=== PATIENT | female | born 1940 | race African-American/Black ===

== ENCOUNTER 2020-10-16 20:09 | Inpatient (IN) ==
[2020-10-16] MEDS ORDERED: ONDANSETRON 4 MG/2 ML VIAL IV STA (20:39)
[2020-10-16] MEDS ORDERED: ASPIRIN 325 MG TABLET PO STA (20:39)
[2020-10-16 21:19] LABS: Basophils % 0.2 % (0.0-0.8); Eosinophils # 0.1 10*3/uL (0.0-0.87); Eosinophils % 2.4 % (0.00-10.9); Hematocrit 40.4 VOL% (35.7-47.0); Hemoglobin 12.6 GM/DL (12.0-16.0); Immature Granulocytes % 0.2 %; Immature Granulocytes Absolute 0.01 #; Lymphocytes # 2.2 10*3/uL (1.4-4.0); Lymphocytes % 40.4 % (21.3-54.2); Mean Corpuscular HGB Conc 31.2 GM/DL (32-36); Mean Corpuscular Volume 88.2 FL (87-102); Monocytes % 11.9 % (1.7-12.7); Neutrophils % 44.9 % (38.7-73.9); Platelet Count 174 T/CUMM (130-400); Red Blood Count 4.58 MC/CUMM (3.8-5.5); White Blood Count 5.4 T/CUMM (4-12)
[2020-10-16 21:46] LABS: Alanine Aminotransferase 26 U/L (13-56); Albumin 3.5 G/DL (3.4-5.0); Alkaline Phosphatase 55 U/L (45-117); Aspartate Amino Transferase 20 U/L (0-37); Blood Urea Nitrogen 17 MG/DL (7-18); Calcium 9.6 MG/DL (8.5-10.1); Carbon Dioxide 30 MMOL/L (21-32); Estimated Glom Filtration Rate 68 ML/MIN; Glucose 90 MG/DL (74-106); Osmolality,Calculated 280.4 MOS/KG (273-304); Potassium 4.1 MMOL/L (3.5-5.1); Sodium 140 MMOL/L (136-145); Total Protein 7.4 G/DL (6.4-8.2)
[2020-10-16 22:05] LABS: INR 1.1; PT Patient Result 12.6 SECS (9.8-11.9); Partial Thromboplastin Time 29.7 SECS (23.9-33.8)
[2020-10-16 22:17] LABS: Bilirubin,Urine Negative (Negative); Blood, Urine Negative (Negative); Glucose,Urine (UA) Negative (Negative); Ketones,Urine Negative (Negative); Nitrite,Urine Negative (Negative); Protein,Urine Negative; RBC,Urine 1 /HPF (0-4); Squamous Epithelial Cell,Urine Occasional /HPF (0-10); Urine Appearance CLEAR (Clear); Urine Color Straw (Yellow); Urine Specific Gravity 1.005 (1.001-1.035); Urine Urobilinogen < 2.0 EU/DL (0.2-1.0)
[2020-10-16 22:52] LABS: Barbiturates Screen,Urine Negative (Negative); Benzodiazepines Screen,Urine Negative (Negative); Cannabinoid Screen,Urine Negative (Negative); Opiate Screen,Urine Negative (Negative); Phencyclidine Screen,Urine Negative (Negative)
[2020-10-17] MEDS ORDERED: ACETAMINOPHEN 325 MG TABLET PO PRN (01:19)
[2020-10-17] MEDS ORDERED: POLYETHYLENE GLYCOL POWDER 17 GM PACK PO PRN (01:19)
[2020-10-17] MEDS ORDERED: KETOROLAC 0.5% OPH SOLN 5 ML BOTTLE BOTH EYES PRN (01:19)
[2020-10-17] MEDS ORDERED: MORPHINE 4 MG/1 ML VIAL IV PRN (01:19)
[2020-10-17] MEDS ORDERED: ONDANSETRON 4 MG/2 ML VIAL IV PRN (01:19)
[2020-10-17] MEDS ORDERED: ONDANSETRON ODT 4 MG TABLET PO PRN (01:19)
[2020-10-17 04:50] LABS: Basophils % 0.4 % (0.0-0.8); Eosinophils # 0.2 10*3/uL (0.0-0.87); Eosinophils % 3.2 % (0.00-10.9); Hemoglobin 12.5 GM/DL (12.0-16.0); Lymphocytes # 2.4 10*3/uL (1.4-4.0); Lymphocytes % 50.4 % (21.3-54.2); Mean Corpuscular HGB Conc 32.1 GM/DL (32-36); Mean Corpuscular Volume 87.2 FL (87-102); Mean Platelet Volume 11.3 FL (9.6-12.0); Monocytes % 10.3 % (1.7-12.7); Neutrophils % 35.7 % (38.7-73.9); Platelet Count 170 T/CUMM (130-400); Red Blood Count 4.47 MC/CUMM (3.8-5.5); Red Cell Distribution Width 13.9 % (9.3-17.3); White Blood Count 4.7 T/CUMM (4-12)
[2020-10-17 05:03] LABS: Albumin 3.4 G/DL (3.4-5.0); Bilirubin,Total 0.4 MG/DL (0.2-1.0); Calcium 9.1 MG/DL (8.5-10.1); Osmolality,Calculated 276.5 MOS/KG (273-304); Potassium 4.1 MMOL/L (3.5-5.1); Risk Ratio 3.28; Total Protein 6.9 G/DL (6.4-8.2); VLDL CHOLESTEROL 17.6 MG/DL
[2020-10-17 05:11] LABS: Eosinophils 1 % (0-10); Hypochromasia Slight; Lymphocytes 56 % (20-55); Microcytosis Slight; Platelet Estimate Adequate; Segmented Neutrophils 38 % (50-85); Total Cells Counted 100
[2020-10-17 05:12] LABS: Atypical Lymphocytes Few
[2020-10-17] MEDS: LEVOTHYROXINE 100 MCG TABLET PO SCH (05:26)
[2020-10-17] MEDS: ACETAMINOPHEN 500 MG TABLET PO SCH (05:28)
[2020-10-17] MEDS: SODIUM CHLORIDE 0.9% 1,000 ML IV SCH ×2 (05:29→21:58)
[2020-10-17] MEDS: cilostazoL 50 MG TABLET PO SCH ×2 (08:57→21:48)
[2020-10-17] MEDS: amLODIPine 5 MG TABLET PO SCH (08:57)
[2020-10-17] MEDS: METOPROLOL TARTRATE 25 MG TABLET PO SCH (08:57)
[2020-10-17] MEDS: SERTRALINE 50 MG TABLET PO SCH (08:57)
[2020-10-17] MEDS: MAGNESIUM CHLORIDE 64 MG TABLET PO SCH (08:57)
[2020-10-17] MEDS: metFORMIN 500 MG TABLET PO SCH (08:57)
[2020-10-17] MEDS: MULTIVITAMIN (CENTRUM) TABLET PO SCH (08:57)
[2020-10-17] MEDS: POTASSIUM CHLORIDE 20 MEQ TABLET PO SCH ×2 (08:58→21:48)
[2020-10-17] MEDS: DOCUSATE SODIUM 100 MG CAPSULE PO SCH ×2 (08:58→21:48)
[2020-10-17] MEDS: sitaGLIPtin 100 MG TABLET PO SCH (08:58)
[2020-10-17] MEDS: PANTOPRAZOLE 40 MG TABLET PO SCH (08:58)
[2020-10-17] MEDS: CLOPIDOGREL 75 MG TABLET PO SCH (08:58)
[2020-10-17] MEDS: TRIAMTERENE/HCTZ 37.5-25 MG TABLET PO SCH (08:58)
[2020-10-17] MEDS ORDERED: PANTOPRAZOLE 40 MG TABLET PO SCH (09:00)
[2020-10-17] MEDS ORDERED: TUBERCULIN SKIN TEST 0.1 ML SYRINGE INTRADERM ONE (10:53)
[2020-10-17] MEDS: TRIAMCINOLONE 0.1% CREAM 15 GM TUBE TOP SCH (11:03)
[2020-10-17] MEDS: DONEPEZIL 10 MG TABLET PO SCH (21:48)
[2020-10-18] MEDS: TRIAMCINOLONE 0.1% CREAM 15 GM TUBE TOP SCH ×3 (04:04→21:17)
[2020-10-18] MEDS: LATANOPROST 0.005% OPH SOLN 2.5 ML BOTTLE BOTH EYES SCH ×2 (04:04→22:06)
[2020-10-18] MEDS: ACETAMINOPHEN 500 MG TABLET PO SCH (05:36)
[2020-10-18] MEDS: LEVOTHYROXINE 100 MCG TABLET PO SCH (05:36)
[2020-10-18 06:12] LABS: Osmolality,Calculated 281.3 MOS/KG (273-304); Potassium 4.3 MMOL/L (3.5-5.1)
[2020-10-18] MEDS: SODIUM CHLORIDE 0.9% 1,000 ML IV SCH ×2 (08:55→11:33)
[2020-10-18] MEDS: DOCUSATE SODIUM 100 MG CAPSULE PO SCH ×2 (08:56→21:18)
[2020-10-18] MEDS: MAGNESIUM CHLORIDE 64 MG TABLET PO SCH (08:56)
[2020-10-18] MEDS: POTASSIUM CHLORIDE 20 MEQ TABLET PO SCH ×2 (08:56→21:17)
[2020-10-18] MEDS: metFORMIN 500 MG TABLET PO SCH (08:56)
[2020-10-18] MEDS: MULTIVITAMIN (CENTRUM) TABLET PO SCH (08:56)
[2020-10-18] MEDS: CLOPIDOGREL 75 MG TABLET PO SCH (08:56)
[2020-10-18] MEDS: METOPROLOL TARTRATE 25 MG TABLET PO SCH (08:56)
[2020-10-18] MEDS: TRIAMTERENE/HCTZ 37.5-25 MG TABLET PO SCH (08:56)
[2020-10-18] MEDS: PANTOPRAZOLE 40 MG TABLET PO SCH (08:56)
[2020-10-18] MEDS: sitaGLIPtin 100 MG TABLET PO SCH (08:56)
[2020-10-18] MEDS: cilostazoL 50 MG TABLET PO SCH ×2 (08:56→21:17)
[2020-10-18] MEDS: amLODIPine 5 MG TABLET PO SCH (08:57)
[2020-10-18] MEDS: SERTRALINE 50 MG TABLET PO SCH (08:58)
[2020-10-18] MEDS ORDERED: MAGNESIUM HYDROXIDE SUSP 30 ML UDCUP PO PRN (18:19)
[2020-10-18] MEDS ORDERED: SENNA 8.6 MG TABLET PO PRN (18:19)
[2020-10-18] MEDS: TEMAZEPAM 15 MG CAPSULE PO SCH (21:18)
[2020-10-18] MEDS: DONEPEZIL 10 MG TABLET PO SCH (21:18)
[2020-10-18] MEDS: NYSTATIN 500,000 UNIT/5 ML UDCUP SWISH/SWAL SCH (22:46)
[2020-10-19] MEDS: SODIUM CHLORIDE 0.9% 1,000 ML IV SCH ×2 (03:40→17:46)
[2020-10-19 05:46] LABS: Calcium 8.9 MG/DL (8.5-10.1); Potassium 3.9 MMOL/L (3.5-5.1)
[2020-10-19] MEDS: ACETAMINOPHEN 500 MG TABLET PO SCH (06:22)
[2020-10-19] MEDS: LEVOTHYROXINE 100 MCG TABLET PO SCH (06:22)
[2020-10-19] MEDS: DOCUSATE SODIUM 100 MG CAPSULE PO SCH ×2 (08:44→21:57)
[2020-10-19] MEDS: CLOPIDOGREL 75 MG TABLET PO SCH (08:45)
[2020-10-19] MEDS: PANTOPRAZOLE 40 MG TABLET PO SCH (08:45)
[2020-10-19] MEDS: amLODIPine 5 MG TABLET PO SCH (08:45)
[2020-10-19] MEDS: SERTRALINE 50 MG TABLET PO SCH (08:45)
[2020-10-19] MEDS: POTASSIUM CHLORIDE 20 MEQ TABLET PO SCH ×2 (08:45→21:58)
[2020-10-19] MEDS: sitaGLIPtin 100 MG TABLET PO SCH (08:45)
[2020-10-19] MEDS: metFORMIN 500 MG TABLET PO SCH (08:45)
[2020-10-19] MEDS: MULTIVITAMIN (CENTRUM) TABLET PO SCH (08:45)
[2020-10-19] MEDS: TRIAMTERENE/HCTZ 37.5-25 MG TABLET PO SCH (08:45)
[2020-10-19] MEDS: METOPROLOL TARTRATE 25 MG TABLET PO SCH (08:45)
[2020-10-19] MEDS: NYSTATIN 500,000 UNIT/5 ML UDCUP SWISH/SWAL SCH ×4 (08:45→21:57)
[2020-10-19] MEDS: cilostazoL 50 MG TABLET PO SCH ×2 (08:45→21:56)
[2020-10-19] MEDS: TRIAMCINOLONE 0.1% CREAM 15 GM TUBE TOP SCH ×2 (08:55→21:59)
[2020-10-19] MEDS: MAGNESIUM CHLORIDE 64 MG TABLET PO SCH (08:56)
[2020-10-19] MEDS ORDERED: predniSONE 5 MG TABLET PO ONE (20:43)
[2020-10-19] MEDS: TEMAZEPAM 15 MG CAPSULE PO SCH (21:57)
[2020-10-19] MEDS: DONEPEZIL 10 MG TABLET PO SCH (21:58)
[2020-10-19] MEDS: LATANOPROST 0.005% OPH SOLN 2.5 ML BOTTLE BOTH EYES SCH (21:58)
[2020-10-20] MEDS: LEVOTHYROXINE 100 MCG TABLET PO SCH (05:36)
[2020-10-20] MEDS: ACETAMINOPHEN 500 MG TABLET PO SCH (05:36)
[2020-10-20] MEDS: SODIUM CHLORIDE 0.9% 1,000 ML IV SCH ×2 (05:41→20:07)
[2020-10-20 05:59] LABS: Calcium 9.2 MG/DL (8.5-10.1); Osmolality,Calculated 286.7 MOS/KG (273-304); Potassium 4.4 MMOL/L (3.5-5.1)
[2020-10-20] MEDS: metFORMIN 500 MG TABLET PO SCH (08:17)
[2020-10-20] MEDS: NYSTATIN 500,000 UNIT/5 ML UDCUP SWISH/SWAL SCH ×4 (08:17→20:38)
[2020-10-20] MEDS: PANTOPRAZOLE 40 MG TABLET PO SCH (08:17)
[2020-10-20] MEDS: METOPROLOL TARTRATE 25 MG TABLET PO SCH (08:17)
[2020-10-20] MEDS: MULTIVITAMIN (CENTRUM) TABLET PO SCH (08:17)
[2020-10-20] MEDS: TRIAMTERENE/HCTZ 37.5-25 MG TABLET PO SCH (08:17)
[2020-10-20] MEDS: cilostazoL 50 MG TABLET PO SCH ×2 (08:17→20:38)
[2020-10-20] MEDS: CLOPIDOGREL 75 MG TABLET PO SCH (08:17)
[2020-10-20] MEDS: DOCUSATE SODIUM 100 MG CAPSULE PO SCH ×2 (08:18→20:38)
[2020-10-20] MEDS: MAGNESIUM CHLORIDE 64 MG TABLET PO SCH (08:18)
[2020-10-20] MEDS: amLODIPine 5 MG TABLET PO SCH (08:18)
[2020-10-20] MEDS: POTASSIUM CHLORIDE 20 MEQ TABLET PO SCH ×2 (08:18→20:38)
[2020-10-20] MEDS: sitaGLIPtin 100 MG TABLET PO SCH (08:18)
[2020-10-20] MEDS: TRIAMCINOLONE 0.1% CREAM 15 GM TUBE TOP SCH ×2 (08:18→20:38)
[2020-10-20] MEDS: SERTRALINE 50 MG TABLET PO SCH (08:18)
[2020-10-20] MEDS: predniSONE 5 MG TABLET PO SCH (09:28)
[2020-10-20] MEDS: DONEPEZIL 10 MG TABLET PO SCH (20:38)
[2020-10-20] MEDS: TEMAZEPAM 15 MG CAPSULE PO SCH (20:38)
[2020-10-20] MEDS: LATANOPROST 0.005% OPH SOLN 2.5 ML BOTTLE BOTH EYES SCH (20:39)
[2020-10-21] MEDS: ACETAMINOPHEN 500 MG TABLET PO SCH (06:35)
[2020-10-21] MEDS: LEVOTHYROXINE 100 MCG TABLET PO SCH (06:35)
[2020-10-21] MEDS: CLOPIDOGREL 75 MG TABLET PO SCH (09:24)
[2020-10-21] MEDS: PANTOPRAZOLE 40 MG TABLET PO SCH (09:24)
[2020-10-21] MEDS: TRIAMTERENE/HCTZ 37.5-25 MG TABLET PO SCH (09:24)
[2020-10-21] MEDS: METOPROLOL TARTRATE 25 MG TABLET PO SCH (09:24)
[2020-10-21] MEDS: POTASSIUM CHLORIDE 20 MEQ TABLET PO SCH ×2 (09:24→21:16)
[2020-10-21] MEDS: sitaGLIPtin 100 MG TABLET PO SCH (09:24)
[2020-10-21] MEDS: MULTIVITAMIN (CENTRUM) TABLET PO SCH (09:24)
[2020-10-21] MEDS: amLODIPine 5 MG TABLET PO SCH (09:24)
[2020-10-21] MEDS: predniSONE 5 MG TABLET PO SCH (09:24)
[2020-10-21] MEDS: cilostazoL 50 MG TABLET PO SCH ×2 (09:24→21:16)
[2020-10-21] MEDS: DOCUSATE SODIUM 100 MG CAPSULE PO SCH ×2 (09:24→21:16)
[2020-10-21] MEDS: NYSTATIN 500,000 UNIT/5 ML UDCUP SWISH/SWAL SCH ×4 (09:25→21:16)
[2020-10-21] MEDS: SERTRALINE 50 MG TABLET PO SCH (09:25)
[2020-10-21] MEDS: MAGNESIUM CHLORIDE 64 MG TABLET PO SCH (09:25)
[2020-10-21] MEDS: metFORMIN 500 MG TABLET PO SCH (09:25)
[2020-10-21] MEDS: SODIUM CHLORIDE 0.9% 1,000 ML IV SCH ×2 (10:10→23:13)
[2020-10-21] MEDS: TRIAMCINOLONE 0.1% CREAM 15 GM TUBE TOP SCH ×2 (10:11→21:25)
[2020-10-21] MEDS: DONEPEZIL 10 MG TABLET PO SCH (21:16)
[2020-10-21] MEDS: TEMAZEPAM 15 MG CAPSULE PO SCH (21:16)
[2020-10-21] MEDS: LATANOPROST 0.005% OPH SOLN 2.5 ML BOTTLE BOTH EYES SCH (21:52)
[2020-10-22 05:09] LABS: Basophils % 0.7 % (0.0-0.8); Eosinophils # 0.2 10*3/uL (0.0-0.87); Eosinophils % 3.4 % (0.00-10.9); Hematocrit 39.8 VOL% (35.7-47.0); Immature Granulocytes % 0.7 %; Immature Granulocytes Absolute 0.04 #; Lymphocytes # 2.2 10*3/uL (1.4-4.0); Mean Corpuscular HGB Conc 32.7 GM/DL (32-36); Mean Corpuscular Volume 85.4 FL (87-102); Mean Platelet Volume 11.4 FL (9.6-12.0); Monocytes % 9.1 % (1.7-12.7); Neutrophils % 48.1 % (38.7-73.9); Platelet Count 191 T/CUMM (130-400); Red Blood Count 4.66 MC/CUMM (3.8-5.5); Red Cell Distribution Width 13.8 % (9.3-17.3); White Blood Count 5.8 T/CUMM (4-12)
[2020-10-22 05:26] LABS: Calcium 9.2 MG/DL (8.5-10.1); Osmolality,Calculated 275.5 MOS/KG (273-304); Potassium 3.7 MMOL/L (3.5-5.1)
[2020-10-22] MEDS: LEVOTHYROXINE 100 MCG TABLET PO SCH (05:56)
[2020-10-22] MEDS: ACETAMINOPHEN 500 MG TABLET PO SCH (05:56)
[2020-10-22] MEDS ORDERED: MAGNESIUM SULF RIDER 4 GM/100 ML PREMIX IV PRN (06:47)
[2020-10-22] MEDS: NYSTATIN 500,000 UNIT/5 ML UDCUP SWISH/SWAL SCH ×4 (08:22→20:25)
[2020-10-22] MEDS: MAGNESIUM CHLORIDE 64 MG TABLET PO SCH (08:23)
[2020-10-22] MEDS: DOCUSATE SODIUM 100 MG CAPSULE PO SCH ×2 (08:23→20:25)
[2020-10-22] MEDS: POTASSIUM CHLORIDE 20 MEQ TABLET PO SCH ×2 (08:23→20:25)
[2020-10-22] MEDS: cilostazoL 50 MG TABLET PO SCH ×2 (08:23→20:25)
[2020-10-22] MEDS: CLOPIDOGREL 75 MG TABLET PO SCH (08:23)
[2020-10-22] MEDS: metFORMIN 500 MG TABLET PO SCH (08:23)
[2020-10-22] MEDS: TRIAMTERENE/HCTZ 37.5-25 MG TABLET PO SCH (08:23)
[2020-10-22] MEDS: METOPROLOL TARTRATE 25 MG TABLET PO SCH (08:23)
[2020-10-22] MEDS: predniSONE 5 MG TABLET PO SCH (08:23)
[2020-10-22] MEDS: MULTIVITAMIN (CENTRUM) TABLET PO SCH (08:23)
[2020-10-22] MEDS: SERTRALINE 50 MG TABLET PO SCH (08:24)
[2020-10-22] MEDS: sitaGLIPtin 100 MG TABLET PO SCH (08:24)
[2020-10-22] MEDS: TRIAMCINOLONE 0.1% CREAM 15 GM TUBE TOP SCH ×2 (08:24→20:32)
[2020-10-22] MEDS: PANTOPRAZOLE 40 MG TABLET PO SCH (08:24)
[2020-10-22] MEDS: MAGNESIUM SULF RIDER 2 GM/50 ML PREMIX IV PRN (08:24)
[2020-10-22] MEDS: amLODIPine 5 MG TABLET PO SCH (08:24)
[2020-10-22] MEDS: SODIUM CHLORIDE 0.9% 1,000 ML IV SCH (12:44)
[2020-10-22] MEDS: LATANOPROST 0.005% OPH SOLN 2.5 ML BOTTLE BOTH EYES SCH (20:25)
[2020-10-22] MEDS: DONEPEZIL 10 MG TABLET PO SCH (20:25)
[2020-10-22] MEDS: TEMAZEPAM 15 MG CAPSULE PO SCH (20:25)
[2020-10-23] MEDS: SODIUM CHLORIDE 0.9% 1,000 ML IV SCH ×2 (02:04→14:51)
[2020-10-23] MEDS: LEVOTHYROXINE 100 MCG TABLET PO SCH (05:11)
[2020-10-23] MEDS: ACETAMINOPHEN 500 MG TABLET PO SCH (05:11)
[2020-10-23] MEDS: CLOPIDOGREL 75 MG TABLET PO SCH (09:04)
[2020-10-23] MEDS: sitaGLIPtin 100 MG TABLET PO SCH (09:04)
[2020-10-23] MEDS: amLODIPine 5 MG TABLET PO SCH (09:05)
[2020-10-23] MEDS: PANTOPRAZOLE 40 MG TABLET PO SCH (09:05)
[2020-10-23] MEDS: TRIAMTERENE/HCTZ 37.5-25 MG TABLET PO SCH (09:05)
[2020-10-23] MEDS: MULTIVITAMIN (CENTRUM) TABLET PO SCH (09:05)
[2020-10-23] MEDS: MAGNESIUM CHLORIDE 64 MG TABLET PO SCH (09:05)
[2020-10-23] MEDS: DOCUSATE SODIUM 100 MG CAPSULE PO SCH (09:05)
[2020-10-23] MEDS: POTASSIUM CHLORIDE 20 MEQ TABLET PO SCH (09:05)
[2020-10-23] MEDS: predniSONE 5 MG TABLET PO SCH (09:05)
[2020-10-23] MEDS: cilostazoL 50 MG TABLET PO SCH (09:05)
[2020-10-23] MEDS: metFORMIN 500 MG TABLET PO SCH (09:05)
[2020-10-23] MEDS: METOPROLOL TARTRATE 25 MG TABLET PO SCH (09:05)
[2020-10-23] MEDS: SERTRALINE 50 MG TABLET PO SCH (09:05)
[2020-10-23] MEDS: MAGNESIUM SULF RIDER 2 GM/50 ML PREMIX IV PRN (09:36)
[2020-10-23] MEDS: TRIAMCINOLONE 0.1% CREAM 15 GM TUBE TOP SCH (10:48)
[2020-10-23] MEDS: NYSTATIN 500,000 UNIT/5 ML UDCUP SWISH/SWAL SCH ×2 (10:49→14:50)
[2020-10-23 11:39] VITALS: BP 130/63
== END 2020-10-23 15:02 | DRG 74 ==
LOC: EDBD → EDUNIT# → N.ED 20:09 → N.EDINP 20:09 → N.3E 10-17 00:05 → N.4E 10-17 12:20
PROVIDERS: ADMIT Internal Medicine; ATTEND Internal Medicine